=== PATIENT | male | born 1930 | race Caucasian/White ===

== ENCOUNTER 2017-08-22 13:07 | Emergency (ER) | payer MEDICARE, OTHER ==
[~2017-08-22] VITALS: Ht 165.1 cm; Wt 74.0 kg
[~2017-08-22 13:07] MED LIST: AMOX500T PO; HYDR-3580 PO; LISI-363 PO; SIMV20 PO
[2017-08-22 13:31] VITALS: BP 166/92; PULSE 86; RESP 16; TEMP 97.4; O2SAT 96
[2017-08-22] MEDS ORDERED: ZOCO5TAB PO (13:52)
[2017-08-22] MEDS ORDERED: LISI-515 PO (13:52)
--- NOTE | 2017-08-22 14:32 | PD ---
HPI Chief Complaint: Respiratory Symptoms Time Seen by Provider: 13:44 Travel History International Travel<30 days: No Contact w/Intl Traveler<30days: No Traveled to known affect area: No History of Present Illness HPI Patient is an 86-year-old male presents emergency Department with his for evaluation of shortness of breath episode that occurred this morning. The patient states he usually has cough dry early in the morning and usually clears. He states that he had a little bit more prolonged shortness of breath this morning. They are visiting from out of town and recently came down to [place]. He has no history of blood clots nor congestive heart failure no heart or lung problems. He states his symptoms lasted only for a few moments and now resolved. No chest pain abdominal pain nausea vomiting no fever no congestion. Symptoms moderate, resolved, context as above, associated signs symptoms as above. PFSH Past Medical History Hx Anticoagulant Therapy: Yes (asa 325mg) Atrial Fibrillation: Yes Cardiovascular Problems: Yes (htn on meds, a-fib) High Cholesterol: Yes Hypertension: Yes Sleep Apnea: Yes Past Surgical History Oral Surgery: Yes (DENTAL IMPLANTS, BONE GRAFT, SINUS REPAIR) Other Surgery: Yes ("THROAT SURGERY FOR SLEEP APNEA") Social History Alcohol Use: Yes (1-2 GLASSES OF RED WINE DAILY) Tobacco Use: No Substance Use: No Allergies-Medications (Allergen,Severity, Reaction): Coded Allergies: No Known Allergies (Unverified Adverse Reaction, Unknown, 08/22/17) Reported Meds & Prescriptions Reported Meds & Active Scripts Active Reported Zocor (Simvastatin) 5 Mg Tab 5 Mg PO DAILY Lisinopril 20 Mg Tab 20 Mg PO DAILY Review of Systems Except as stated in HPI: all other systems reviewed are Neg Physical Exam Narrative GENERAL: Well-developed well-nourished elderly male in no obvious distress. SKIN: Focused skin assessment warm/dry. HEAD: Atraumatic. Normocephalic. EYES: Pupils equal and round. No scleral icterus. No injection or drainage. ENT: No nasal bleeding or discharge. Mucous membranes pink and moist. NECK: Trachea midline. No JVD. CARDIOVASCULAR: Regular rate and rhythm. No murmur appreciated. RESPIRATORY: No accessory muscle use. Clear to auscultation. Breath sounds equal bilaterally. GASTROINTESTINAL: Abdomen soft, non-tender, nondistended. Hepatic and splenic margins not palpable. MUSCULOSKELETAL: No obvious deformities. No clubbing. No cyanosis. No edema. NEUROLOGICAL: Awake and alert. No obvious cranial nerve deficits. Motor grossly within normal limits. Normal speech. PSYCHIATRIC: Appropriate mood and affect; insight and judgment normal. Data Data Last Documented VS Vital Signs Date Time Temp Pulse Resp B/P (MAP) Pulse Ox O2 Delivery O2 Flow Rate FiO2 08/22/17 15:57 72 18 144/78 (100) 96 21 08/22/17 13:31 97.4 Orders Orders Chest, Pa & Lat (08/22/17 ) Ed Discharge Order (08/22/17 15:36) [facility] Medical Decision Making Medical Screen Exam Complete: Yes Emergency Medical Condition: Yes Differential Diagnosis Pneumonia, CHF, bronchitis, PE is possible but seems unlikely. Narrative Course 86-year-old male with an episode of shortness of breath this morning now resolved. He appears well and in no distress. Chest x-ray shows no acute cardiopulmonary disease. Discussed with the patient and his the differential diagnosis, I informed him that there is a concern for PE but it is unlikely, also discussed that the only way to completely exclude would be doing a CAT scan. Given his symptoms are now resolved, I offered a chest x-ray and they agreed. I suggested that they could go home for now with expectant management and if the symptoms return should return the emergency department for a more thorough workup. They are agreeable to this at this time. Diagnosis Primary Impression: SOB (shortness of breath) Disposition: 01 DISCHARGE HOME Condition: Stable Scott Coyne MD Aug 22, 2017 14:32
[2017-08-22 15:57] VITALS: BP 144/78
--- NOTE | 2017-08-22 16:07 | RADRPT ---
EXAM DATE/TIME: 08/22/2017 14:46 [facility] COMPARISON: No previous studies available for comparison. INDICATIONS : Shortness of breath. MEDICAL HISTORY : None. SURGICAL HISTORY : None. ENCOUNTER: Initial ACUITY: 3 days PAIN SCORE: 4/10 LOCATION: Bilateral upper chest FINDINGS: PA and lateral views of the chest demonstrate the lungs to be symmetrically aerated without evidence of mass, infiltrate or effusion. The cardiomediastinal contours are unremarkable. Osseous structure s are intact. CONCLUSION: No acute disease. Ruperto Salgado MD on August 22, 2017 at 16:05 Board Certified Radiologist. This report was verified electronically.
== END 2017-08-22 15:59 | disposition home or self-care (01) ==
LOC: PHED 13:07
DX: R06.02 Shortness of breath (principal); R05 Cough; I48.91 Unspecified atrial fibrillation; I10 Essential (primary) hypertension; E78.00 Pure hypercholesterolemia, unspecified; Z79.899 Other long term (current) drug therapy
CPT/HCPCS: 71020; 99283

== ENCOUNTER 2017-09-01 09:25 | Emergency (ER) | payer OTHER ==
[2017-09-01] VITALS (8 sets, daily range): BP systolic 111–208; BP diastolic 63–104; PULSE 68–104; RESP 16–18; TEMP 97.8; O2SAT 96–98
[~2017-09-01] VITALS: Ht 165.1 cm; Wt 74.5 kg
[~2017-09-01 09:25] MED LIST changes: -AMOX500T PO; -HYDR-3580 PO; -LISI-363 PO; +LISI-515 PO; -SIMV20 PO; +ZOCO5TAB PO
[2017-09-01] MEDS ORDERED: FISHCAP4 PO (10:07)
[2017-09-01] MEDS ORDERED: ASPI81TA23 PO (10:07)
[2017-09-01] MEDS ORDERED: MULT-65 PO (10:07)
[2017-09-01] MEDS ORDERED: SODIUM CHLORIDE 0.9% FLUSH 10 ML FLUSH IVF PRN (10:15)
--- NOTE | 2017-09-01 10:15 | PD ---
HPI Chief Complaint: Respiratory Symptoms Time Seen by Provider: 09:47 Travel History International Travel<30 days: No Contact w/Intl Traveler<30days: No Traveled to known affect area: No History of Present Illness HPI This patient complains of shortness of breath. It started at 5 AM this morning. Duration 5 hours. He denies any chest pain or hemoptysis or cough or fever. Symptoms moderately severe. He was seen here week ago for the same thing but says is worse today. No alleviating factors. No exacerbating factors. PFSH Past Medical History Hx Anticoagulant Therapy: Yes (BABY ASA DAILY) Atrial Fibrillation: Yes Cardiovascular Problems: Yes (HTN, CHOL) High Cholesterol: Yes Diabetes: No Hypertension: Yes Kidney Stones: Yes Sleep Apnea: Yes Tetanus Vaccination: > 5 Years Influenza Vaccination: Yes Past Surgical History Oral Surgery: Yes (DENTAL IMPLANTS, BONE GRAFT, SINUS REPAIR) Other Surgery: Yes ("THROAT SURGERY FOR SLEEP APNEA" back surgery) Social History Alcohol Use: Yes (1-2 GLASSES OF RED WINE DAILY and a bottle of beer) Tobacco Use: No (quit 45 yrs ago smoked cigs) Substance Use: No Allergies-Medications (Allergen,Severity, Reaction): Coded Allergies: No Known Allergies (Unverified Adverse Reaction, Unknown, 09/01/17) Reported Meds & Prescriptions Reported Meds & Active Scripts Active Reported Multi-Vitamin Daily (Multiple Vitamin) 1 Tab Tab 1 Tab PO DAILY Fish Oil + D3 (Fish Oil-Cholecalciferol) 1,200-1,000 Mg-Unit Cap 1 Cap PO DAILY Aspirin EC (Aspirin) 81 Mg Tabdr 81 Mg PO DAILY Zocor (Simvastatin) 5 Mg Tab 5 Mg PO DAILY Lisinopril 20 Mg Tab 20 Mg PO DAILY Review of Systems General / Constitutional: No: Fever Eyes: No: Visual changes HENT: No: Headaches Cardiovascular: No: Chest Pain or Discomfort Respiratory: Positive: Shortness of Breath Gastrointestinal: No: Abdominal Pain Genitourinary: No: Dysuria Musculoskeletal: No: Pain Skin: No Rash Neurologic: No: Weakness Psychiatric: No: Depression Endocrine: No: Polydipsia Hematologic/Lymphatic: No: Easy Bruising Physical Exam Narrative GENERAL: Well-nourished, well-developed patient with shortness of breath . SKIN: Focused skin assessment reveals no rash and nodules. Skin is Warm and dry. HEAD: Atraumatic. Normocephalic. EYES: Pupils equal and round. No scleral icterus. No injection or drainage. ENT: No nasal bleeding or discharge. Mucous membranes pink and moist. NECK: Trachea midline. No JVD. CARDIOVASCULAR: Regular rate and rhythm. No murmur appreciated. RESPIRATORY: No accessory muscle use. Clear to auscultation. Breath sounds equal bilaterally. GASTROINTESTINAL: Abdomen soft, non-tender, nondistended. Hepatic and splenic margins not palpable. MUSCULOSKELETAL: No obvious deformities. No clubbing. No cyanosis. No edema. NEUROLOGICAL: Awake and alert. No obvious cranial nerve deficits. Motor grossly within normal limits. Normal speech. PSYCHIATRIC: Appropriate mood and affect; insight and judgment normal. Data Data Last Documented VS Vital Signs Date Time Temp Pulse Resp B/P (MAP) Pulse Ox O2 Delivery O2 Flow Rate FiO2 09/01/17 13:42 68 16 97 Room Air 09/01/17 11:24 167/91 (116) 09/01/17 09:27 97.8 Orders Orders Complete Blood Count With Diff (09/01/17 10:05) Basic Metabolic Panel (Bmp) (09/01/17 10:05) Act Partial Throm Time (Ptt) (09/01/17 10:05) Prothrombin Time / Inr (Pt) (09/01/17 10:05) Ckmb (Isoenzyme) Profile (09/01/17 10:05) Troponin I (09/01/17 10:05) Iv Access Insert/Monitor (09/01/17 10:05) Electrocardiogram (09/01/17 10:05) Ecg Monitoring (09/01/17 10:05) Oximetry (09/01/17 10:05) Chest, Single Ap (09/01/17 10:05) Sodium Chloride 0.9% Flush (Ns Flush) (09/01/17 10:15) CKMB (09/01/17 10:20) CKMB% (09/01/17 10:20) Ct Pulmonary Angiogram (09/01/17 ) Iohexol 350 Inj (Omnipaque 350 Inj) (09/01/17 12:44) Labs Laboratory Tests Test 09/01/17 10:20 White Blood Count 5.9 TH/MM3 Red Blood Count 5.01 MIL/MM3 Hemoglobin 15.0 GM/DL Hematocrit 46.2 % Mean Corpuscular Volume 92.2 FL Mean Corpuscular Hemoglobin 30.0 PG Mean Corpuscular Hemoglobin Concent 32.5 % Red Cell Distribution Width 13.3 % Platelet Count 174 TH/MM3 Mean Platelet Volume 7.4 FL Neutrophils (%) (Auto) 57.7 % Lymphocytes (%) (Auto) 33.3 % Monocytes (%) (Auto) 7.5 % Eosinophils (%) (Auto) 0.9 % Basophils (%) (Auto) 0.6 % Neutrophils # (Auto) 3.4 TH/MM3 Lymphocytes # (Auto) 2.0 TH/MM3 Monocytes # (Auto) 0.4 TH/MM3 Eosinophils # (Auto) 0.1 TH/MM3 Basophils # (Auto) 0.0 TH/MM3 CBC Comment DIFF FINAL Differential Comment Prothrombin Time 11.2 SEC Prothromb Time International Ratio 1.1 RATIO Activated Partial Thromboplast Time 25.7 SEC Blood Urea Nitrogen 13 MG/DL Creatinine 1.10 MG/DL Random Glucose 109 MG/DL Calcium Level 8.3 MG/DL Sodium Level 136 MEQ/L Potassium Level 4.9 MEQ/L Chloride Level 102 MEQ/L Carbon Dioxide Level 26.2 MEQ/L Anion Gap 8 MEQ/L Estimat Glomerular Filtration Rate 63 ML/MIN Total Creatine Kinase 183 U/L Creatine Kinase MB 4.8 NG/ML Troponin I 0.05 NG/ML [facility] Medical Decision Making Medical Screen Exam Complete: Yes Emergency Medical Condition: Yes Medical Record Reviewed: Yes Differential Diagnosis Pneumonia, CHF, PE Narrative Course I have reviewed the patient's electronic medical record. Reviewed his visit from a week ago. ER physician discussed PE workup of the abdomen not to pursue. The patient now says he is worse and wants to pursue that. IV placed CBC is normal Metabolic profile is normal Coagulation studies are normal CK is normal Troponin is normal I reviewed his EKG which shows A. fib which is chronic per patient. He is on aspirin daily only I reviewed his chest x-ray which is negative for emergent problem CT pulmonary and exam is negative for PE. At this time he is not short of breath and stable for outpatient follow-up Diagnosis Primary Impression: Shortness of breath Additional Instructions: The patient was advised to follow up with their physician and return if they worsen. Med/Other Pt SpecificInfo: Other Disposition: 01 DISCHARGE HOME Condition: Stable Ignacio Granados MD Sep 01, 2017 10:15
[2017-09-01 10:29] LABS: AUTOMATED NEUTROPHIL # 3.4 TH/MM3 (1.8-7.7); BASOPHIL % 0.6 % (0.0-2.0); EOSINOPHIL # 0.1 TH/MM3 (0-0.4); EOSINOPHIL % 0.9 % (0.0-4.0); HEMATOCRIT 46.2 % (39.0-51.0); LYMPH % 33.3 % (9.0-44.0); MEAN CELL VOLUME 92.2 FL (80.0-100.0); MEAN CORPUSCULAR HGB CONC 32.5 % (32.0-36.0); MEAN PLATELET VOLUME 7.4 FL (7.0-11.0); MONO % 7.5 % (0.0-8.0); MONOCYTE # 0.4 TH/MM3 (0-0.9); NEUT % 57.7 % (16.0-70.0); PLATELET COUNT 174 TH/MM3 (150-450); RED BLOOD COUNT 5.01 MIL/MM3 (4.50-5.90); RED CELL DISTRIBUTION WIDTH 13.3 % (11.6-17.2); WHITE BLOOD COUNT 5.9 TH/MM3 (4.0-11.0)
[2017-09-01 10:39] LABS: CHLORIDE 102 MEQ/L (98-107); SODIUM (NA) 136 MEQ/L (136-145)
[2017-09-01 10:42] LABS: BICARBONATE 26.2 MEQ/L (21.0-32.0); CALCIUM 8.3 MG/DL (8.5-10.1); GLUCOSE,RANDOM 109 MG/DL (74-106)
[2017-09-01 10:43] LABS: BLOOD UREA NITROGEN 13 MG/DL (7-18)
[2017-09-01 10:46] LABS: GLOMERULAR FILTRATION RATE 63 ML/MIN (>89)
[2017-09-01 10:50] LABS: TROPONIN I 0.05 NG/ML (0.02-0.05)
[2017-09-01 10:54] LABS: INTERNATIONAL NORMALIZED RATIO 1.1 RATIO; PROTHROMBIN TIME - PATIENT 11.2 SEC (9.8-11.6)
--- NOTE | 2017-09-01 11:13 | RADRPT ---
EXAM DATE/TIME: 09/01/2017 10:39 [facility] COMPARISON: CHEST PA & LAT, August 22, 2017, 14:46. INDICATIONS : Short of breath MEDICAL HISTORY : Hypertension. Hypercholesterolemia. AFib, Sleep Apnea SURGICAL HISTORY : None. ENCOUNTER: Initial ACUITY: 1 day PAIN SCORE: 0/10 LOCATION: Bilateral chest FINDINGS: The cardiac silhouette is enlarged in transverse diameter. There is prominence of the aortic knob is with calcification characteristic of atherosclerotic vascular disease. The background interstitium is prominent though this is likely chronic in nature. The lungs are free of acute parenchymal opacity. No effusions are identified. CONCLUSION: 1. Cardiomegaly. No acute pulmonary disease. Joey Larios MD on September 01, 2017 at 11:09 Board Certified Radiologist. This report was verified electronically.
[2017-09-01] MEDS ORDERED: IOHEXOL 350 MG/ML 10 ML VIAL (for RAD DIAG) IVCONTRAST ONE (12:44)
--- NOTE | 2017-09-01 13:01 | RADRPT ---
EXAM DATE/TIME: 09/01/2017 12:29 [facility] COMPARISON: No previous studies available for comparison. INDICATIONS : Short of breath. IV CONTRAST: 75 cc Omnipaque 350 (iohexol) IV RADIATION DOSE: 12.15 CTDIvol (mGy) MEDICAL HISTORY : Hypertension. Cardiovascular disease SURGICAL HISTORY : Throat surgery. ENCOUNTER: Initial ACUITY: 1 day PAIN SCALE: 0/10 LOCATION: chest TECHNIQUE: Volumetric scanning of the chest was performed using a pulmonary embolism protocol MIP images were re constructed. Using automated exposure control and adjustment of the mA and/or kV according to patien t size, radiation dose was kept as low as reasonably achievable to obtain optimal diagnostic quality images. DICOM format image data is available electronically for review and comparison. Follow-up recommendations for detected pulmonary nodules are based at a minimum on nodule size and pa tient risk factors according to Fleischner Society Guidelines. FINDINGS: Examination of the pulmonary vasculature demonstrates good filling of the main, lobar and segmental b ranches. There are no filling defects to suggest pulmonary embolism. Multiplanar reconstructions are also unremarkable. Examination of the lung choe demonstrates no evidence of pulmonary nodule. No pleural fluid is iden tified. Examination of the mediastinum demonstrates no abnormally enlarged lymph nodes by CT criteria . No axillary or hilar abnormalities are identified. Coronary artery calcifications are present. The visualized upper abdomen demonstrates no abnormality. CONCLUSION: 1. No evidence of pulmonary embolism. Joey Larios MD on September 01, 2017 at 12:46 Board Certified Radiologist. This report was verified electronically.
--- NOTE | 2017-09-01 21:21 | EKG ---
Date Performed: 09/01/2017 Time Performed: 09:51:31 PTAGE: 87 years EKG: ATRIAL FIBRILLATION INCOMPLETE RIGHT BUNDLE BRANCH BLOCK ABNORMAL RHYTHM ECG NO PREVIOUS TRACING DOCTOR: Justin Gamboa Interpretating Date/Time 09/01/2017 21:19:47
== END 2017-09-01 14:24 | disposition home or self-care (01) ==
LOC: PHED 09:25
DX: R06.02 Shortness of breath (principal); I48.91 Unspecified atrial fibrillation; I10 Essential (primary) hypertension; E78.00 Pure hypercholesterolemia, unspecified; Z79.82 Long term (current) use of aspirin; Z79.899 Other long term (current) drug therapy; Z87.442 Personal history of urinary calculi
CPT/HCPCS: 71045; 71275; 80048; 82550; 82552; 84484; 85025; 85610; 85730; 93005; 99285; Q9967